=== PATIENT | female | born 1950 | race African-American/Black ===

== ENCOUNTER 2016-08-27 16:48 | Emergency (ER) | payer OTHER ==
[~2016-08-27 16:48] MED LIST: ASA5GR PO; ASAB PO; COREG6 PO; D100 PO; HALF81 PO; HYDROCHLOROT12.5 MG PO; KLONO1 PO; LIPITOR20 PO; LOP100 PO; MICROZIDE PO; NEXIUM40 PO; NORCO1 TA1 PO; NORV5 PO; PB30 PO; PLAVIX PO; PRILO PO; PRIN5 PO; PROAIR HFA INH; SPIRIVA INH; VITAMIN D1000 UNI1 PO; ZESTORETIC PO
[2016-08-27 17:56] LABS: BASOPHILS 0.5 %; BASOPHILS ABSOLUTE 0.03 10/3/uL (0.0-0.16); EOSINOPHILS 3.9 %; EOSINOPHILS ABSOLUTE 0.25 10/3/uL (0.0-0.53); HEMATOCRIT 38.2 % (36.0-48.0); HEMOGLOBIN 12.9 g/dL (12.0-16.0); LYMPHOCYTES 49.1 %; LYMPHOCYTES ABSOLUTE 3.13 10/3/uL (0.67-4.30); MEAN CORPUS HGB CONC 33.8 g/dL (32.0-36.0); MEAN CORPUSCULAR HEMOGLOB 30.9 pg (26.0-34.0); MEAN CORPUSCULAR VOLUME 91.6 fL (80-100); MONOCYTES 9.4 %; NEUTROPHILS 37.1 %; NEUTROPHILS ABSOLUTE 2.37 10/3/uL (2.02-8.40); PLATELET COUNT 227 10/3/uL (150-400); RBC DISTRIBUTION WIDTH 15.7 % (12.0-16.0); RED CELL COUNT 4.17 10/6/uL (4.0-5.6); WHITE BLOOD CELLS 6.4 10/3/uL (4.5-10.5)
[2016-08-27 17:57] LABS: MANUAL DIFF NO %
[2016-08-27 18:15] LABS: ASCORBIC ACID (UR NOT ORDER) NEG (NEG); BILIRUBIN, URINE NEGATIVE (NEG); ER URINALYSIS TAT 0 Hrs 10 Mins; KETONE, URINE NEGATIVE (NEG); LEUKOCYTE ESTERASE(NOT OR LARGE (NEG); NITRITE (URINE) NEG (NEG); WBC (NOT ORDERED) (RFLEX) 9 (0-5)
[2016-08-27 18:48] LABS: ALKALINE PHOSPHATASE 81 U/L (45-117); CHLORIDE, SERUM 112 MMOL/L (96-112); CO2 (CARBON DIOXIDE) 25 MMOL/L (24-34); CREATININE 1.02 MG/DL (0.55-1.02); GFR AFRICAN AMERICAN 66 ML/MIN (>=60); GFR NON AFRICAN AMERICAN 57 ML/MIN (>=60); GLUCOSE, SERUM 118 MG/DL (60-99); SGPT(ALT) 18 U/L (5-65); SODIUM, SERUM 144 MMOL/L (135-148); TOTAL BILIRUBIN 0.2 MG/DL (0-1.2); TOTAL PROTEIN 5.5 G/DL (6.0-8.5)
[2016-08-27 18:49] LABS: BUN (BLOOD UREA NITROGEN) 10 MG/DL (6-23); DIRECT BILIRUBIN < 0.1 MG/DL (0.0-0.4); INDIRECT BILIRUBIN(NOT ORDER) 0.1 MG/DL (0.1-0.9); POTASSIUM, SERUM 3.7 MMOL/L (3.5-5.3); SGOT(AST) 26 U/L (5-40)
== END 2016-08-27 21:35 | disposition home or self-care (01) ==
LOC: ER 16:48
PROVIDERS: Emergency Medicine
DX: N39.0 Urinary tract infection, site not specified (principal); I10 Essential (primary) hypertension; F31.9 Bipolar disorder, unspecified; Z88.5 Allergy status to narcotic agent; Z91.041 Radiographic dye allergy status; Z88.8 Allergy status to other drugs, medicaments and biological substances; Z79.82 Long term (current) use of aspirin; Z79.899 Other long term (current) drug therapy
CPT/HCPCS: 72100; 74176; 80048; 80076; 81001; 85025; 87086; 96372; 99284; A9270-GY; J1885